=== PATIENT | female | born 1970 | race Caucasian/White ===

== ENCOUNTER 2016-12-07 13:02 | Emergency (ER) | payer MEDICARE ==
[2016-12-07 13:55] LABS: BASOPHIL 0.3 % (0-2); EOSINOPHIL 3.9 % (0-5); HCT 43.3 % (37.0-47.0); HGB 14.8 g/dl (12.5-16.0); LYMPHOCYTE 13.5 % (15-48); MCH 35.5 pg (25.0-31.0); MCHC 34.2 g/dL (32.0-36.0); MCV 103.8 fL (78.0-100.0); MPV 10.7 fL (6.0-9.5); NEUTROPHIL 73.3 % (41-80); PLT 231 K/uL (150-400); RBC 4.17 M/uL (4.20-5.40); RDW 12.9 % (11.5-14.0); WBC 9.3 K/uL (4.0-10.5)
[2016-12-07 14:08] LABS: INR 0.97 (0.9-1.2); PROTHROMBIN TIME 12.5 SECONDS (11.7-14.0)
[2016-12-07 14:16] LABS: ALBUMIN 3.9 g/dL (3.5-5.0); BILIRUBIN - TOTAL 0.4 mg/dL (0.1-1.0); CREATININE 0.5 mg/dL (0.5-1.0); POTASSIUM 3.6 mmol/L (3.5-5.1); TOTAL PROTEIN 6.9 g/dL (6.4-8.3)
[2016-12-07 15:38] LABS: BILIRUBIN NEGATIVE (NEGATIVE); BLOOD 1+ Ery/uL (NEGATIVE); CLARITY CLEAR (CLEAR); COLOR YELLOW (YELLOW); GLUCOSE (U) NORMAL (NORMAL); KETONE (U) NEGATIVE (NEGATIVE); LEUKOCYTES NEGATIVE Leu/uL (NEGATIVE); NITRITE NEGATIVE (NEGATIVE); PROTEIN NEGATIVE (NEGATIVE); SPECIFIC GRAVITY 1.015 (1.001-1.030); UROBILINOGEN 0.2 mg/dL (0.2-1.0); pH 6.5 (5.0-9.0)
[2016-12-07 15:46] LABS: BACTERIA 1+; SQUAMOUS EPITHELIAL CELLS >50
== END 2016-12-07 17:15 | disposition home or self-care (01) ==
LOC: FER 13:02
PROVIDERS: Internal Medicine
DX: K58.0 Irritable bowel syndrome with diarrhea (principal); K76.0 Fatty (change of) liver, not elsewhere classified; I10 Essential (primary) hypertension; J44.9 Chronic obstructive pulmonary disease, unspecified; F17.200 Nicotine dependence, unspecified, uncomplicated; Z88.0 Allergy status to penicillin; Z88.2 Allergy status to sulfonamides; Z88.8 Allergy status to other drugs, medicaments and biological substances; Z91.041 Radiographic dye allergy status; Z79.51 Long term (current) use of inhaled steroids; Z79.899 Other long term (current) drug therapy; Z90.49 Acquired absence of other specified parts of digestive tract
CPT/HCPCS: 36415; 80053; 81001; 83690; 85025; 85610; 85730; 86140

== ENCOUNTER 2021-03-13 15:14 | Emergency (ER) | payer MEDICARE ==
[2021-03-13 16:40] LABS: BASOPHIL 0.5 % (0-2); EOSINOPHIL 7.5 & (0-5); HCT 41.5 % (37.0-47.0); HGB 13.6 g/dl (12.5-16.0); LYMPHOCYTE 22.2 % (15-48); MCH 34.2 pg (25.0-31.0); MCHC 32.8 g/dL (32.0-36.0); MCV 104.3 fL (78.0-100.0); MONOCYTE 10.5 % (0-12); MPV 11.3 fL (6.0-9.5); NEUTROPHIL 59.2 % (41-80); PLT 278 K/uL (150-400); RBC 3.98 M/uL (4.20-5.40); RDW 13.4 % (11.5-14.0); WBC 9.17 K/uL (4.0-10.5)
[2021-03-13 16:52] LABS: BILIRUBIN 1+ mg/dL (NEGATIVE); BLOOD NEGATIVE Ery/uL (NEGATIVE); CLARITY CLEAR (CLEAR); COLOR YELLOW (YELLOW); GLUCOSE (U) NORMAL (NORMAL); LEUKOCYTES NEGATIVE Leu/uL (NEGATIVE); NITRITE NEGATIVE (NEGATIVE); PROTEIN NEGATIVE (NEGATIVE); SPECIFIC GRAVITY 1.025 (1.001-1.030); UROBILINOGEN 0.2 mg/dL (0.2-1.0)
[2021-03-13 16:54] LABS: CREATININE 0.61 mg/dL (0.51-0.95); POTASSIUM 3.7 mmol/L (3.5-5.1)
[2021-03-13] MEDS ORDERED: MEDROL 4MG DOSEP4 MG PO (18:56)
== END 2021-03-13 19:15 | disposition home or self-care (01) ==
LOC: FER 15:14
PROVIDERS: Nurse Practitioner Family
DX: R10.9 Unspecified abdominal pain (principal); I10 Essential (primary) hypertension; J44.9 Chronic obstructive pulmonary disease, unspecified; Z88.0 Allergy status to penicillin; Z88.8 Allergy status to other drugs, medicaments and biological substances; Z88.6 Allergy status to analgesic agent; Z91.041 Radiographic dye allergy status
CPT/HCPCS: 36415; 80048; 81003; 85025; J7030